=== PATIENT | male | born 1985 | race Caucasian/White ===

== ENCOUNTER 2021-03-06 11:14 | Emergency (ER) | payer OTHER ==
[~2021-03-06] VITALS: Ht 182.9 cm; Wt 115.0 kg
[2021-03-06 11:51] VITALS: BP 131/90
--- NOTE | 2021-03-06 11:51 | PHYS DOC ---
General Adult HPI: HPI: Patient is a 35-year-old male who presents to the emergency department for a productive cough, congestion, decreased smell that started a couple of days ago. Patient had an at home positive COVID-19 test today. Patient presents to the emergency department because he wants a confirmatory COVID test from the emergency department. Patient denies any shortness of breath, chest pain, fever, loss of taste, nausea, vomiting, abdominal pain. (CHRISTIE STOUT APRN) Review of Systems: Review of Systems: Constitutional: negative unless reported in HPI Eyes: negative unless reported in HPI HENT: negative unless reported in HPI Respiratory: negative unless reported in HPI Cardiovascular: negative unless reported in HPI GI: negative unless reported in HPI : negative unless reported in HPI Musculoskeletal: negative unless reported in HPI Integument: negative unless reported in HPI Neurologic: negative unless reported in HPI Endocrine: negative unless reported in HPI Lymphatic: negative unless reported in HPI Psychiatric: negative unless reported in HPI (CHRISTIE STOUT APRN) Physical Exam: PE: Constitutional: Well developed, well nourished, no acute distress, non-toxic appearance. [] HENT: Normocephalic, atraumatic, bilateral external ears normal, oropharynx moist, no oral exudates, nose normal. [] Eyes: PERRL, EOMI, conjunctiva normal, no discharge. [] Neck: Normal range of motion, no stridor Cardiovascular:Heart rate regular rhythm, no murmur [] Lungs & Thorax: Bilateral breath sounds clear to auscultation [] Abdomen: Soft and flat Skin: Warm, dry, no erythema, no rash. [] Back: Normal range of motion Extremities: No tenderness, no cyanosis, no clubbing, ROM intact, no edema. [] Neurologic: Alert and oriented X 3, normal motor function, normal sensory function, no focal deficits noted. [] Psychologic: Affect normal, judgement normal, mood normal. [] (CHRISTIE STOUT APRN) EKG: EKG: [] (CHRISTIE STOUT APRN) Radiology/Procedures: Radiology/Procedures: [] (CHRISTIE STOUT APRN) Heart Score: C/O Chest Pain: No Risk Factors: Risk Factors: DM, Current or recent (<one month) smoker, HTN, HLP, family history of CAD, obesity. Risk Scores: Score 0 - 3: 2.5% MACE over next 6 weeks - Discharge Home Score 4 - 6: 20.3% MACE over next 6 weeks - Admit for Clinical Observation Score 7 - 10: 72.7% MACE over next 6 weeks - Early Invasive Strategies (CHRISTIE STOUT APRN) Course & Med Decision Making: Course & Med Decision Making Pertinent Labs and Imaging studies reviewed. (See chart for details) [] Patient presents to the emergency department for productive cough, congestion, decreased smell that started a couple of days ago. He had a positive at-home COVID-19 test today. Patient's vital signs are stable and he is in no acute distress. Patient will be tested for COVID-19 and he will be notified of those results in 1 to 2 days, advised to self isolate pending results. Educated on symptomatic treatment. I discussed with patient all findings and diagnostic testing as well as the need to follow-up with PCP for further evaluation and treatment or return to the ER if any new or worsening symptoms. Strict return precautions were also discussed at length. Patient voiced understanding and agreement with the plan. Patient is hemodynamically stable at the time of disposition. (CHRISTIE STOUT APRN) Course & Med Decision Making Did not see or evaluate patient. Did not discuss patient with CLINICAL MENTAL HEALTH COUNSELOR. Agree with CLINICAL MENTAL HEALTH COUNSELOR's work-up and disposition per note. (SUZI LE MD) Dragon Disclaimer: Dragon Disclaimer: This electronic medical record was generated, in whole or in part, using a voice recognition dictation system. (CHRISTIE STOUT APRN) Departure Departure: Impression: Primary Impression: Person under investigation for COVID-19 Disposition: HOME / SELF CARE / HOMELESS Condition: GOOD Referrals: PCP,UNKNOWN (PCP) Patient Instructions: Cough, Adult Additional Instructions: You were seen in the emergency department today for COVID symptoms. You were tested in the ER for COVID-19, you will be notified of those results when they become available in approximately 1 to 2 days. Please self isolate until you receive these results. Please take Tylenol and ibuprofen for any pain or fevers. Increase your fluids and rest. For your cough you can take Delsym [id number]. I would advise you to purchase a pulse oximeter monitor your oxygen saturation levels at home and return to the emergency department if they drop below 90%. Please follow-up with your primary care provider within a week. Return to the emergency department if you develop shortness of breath, chest pain, high fevers refractory to treatment, tractable nausea or vomiting, severe weakness. CHRISTIE STOUT APRN Mar 06, 2021 11:51 SUZI LE MD Mar 06, 2021 12:01
--- NOTE | 2021-03-07 13:12 | NUR ---
PATIENT NOTIFIED OF COVID RESULT FROM [facility]
== END 2021-03-06 11:59 | disposition home or self-care (01) ==
LOC: ER 11:14
DX: U07.1 COVID-19 (principal)
CPT/HCPCS: 99283; C9803; U0003